=== PATIENT | female | born 1980 | race Caucasian/White ===

== ENCOUNTER 2017-04-26 17:04 | Emergency (ER) | payer MEDICAID ==
[2017-04-26 17:27] VITALS: TEMP 98.1; BMI 34.0
[2017-04-26 17:29] VITALS: RESP 18
--- NOTE | 2017-04-26 18:17 | ED PDOC ---
Arrival/HPI - General Chief Complaint: Female Genitourinary Time Seen by Provider: 04/26/17 17:48 Historian: Patient - History of Present Illness Narrative History of Present Illness (Text): 04/26/17 18:17 A 36 year old female, whose past medical history includes anemia, presents to the emergency department complaining of dizziness and syncopal episode. Patient reports she felt dizzy at work and had a syncopal episode, when she sat down. Patient reports she regained consciousness right away on her own. Patient reports this happened multiple times ever since she was 5 years old, states she has a syncopal episode once a month. Notes last time she was evaluated was more than 10 years ago. Reports she currently feels better, reports no dizziness at this time. Patient denies any fever, chills, cough, chest pain, abdominal pain, nausea, vomiting, diarrhea or any other complaints at this time. Denies any recent illness. Symptom Onset: Sudden Symptom Course: Unchanged Activities at Onset: Rest Context: Work Past Medical History - Provider Review Nursing Documentation Reviewed: Yes - Reproductive Currently : Yes - Cardiac Hx Cardiac Disorders: No - Pulmonary Hx Respiratory Disorders: No - Neurological Hx Neurological Disorder: No - HEENT Hx HEENT Disorder: No - Renal Hx Renal Disorder: No - Endocrine/Metabolic Hx Endocrine Disorders: No - Hematological/Oncological Hx Blood Disorders: No - Integumentary Hx Dermatological Disorder: No - Musculoskeletal/Rheumatological Hx Musculoskeletal Disorders: No - Gastrointestinal Hx Gastrointestinal Disorders: No - Genitourinary/Gynecological Hx Genitourinary Disorders: No - Psychiatric Hx Psychophysiologic Disorder: No Hx Substance Use: No - Surgical History Other/Comment: 2 abortions - Anesthesia Hx Anesthesia: Yes Family/Social History - Physician Review Nursing Documentation Reviewed: Yes Family/Social History: No Known Family HX Smoking Status: Never Smoked Hx Alcohol Use: No Hx Substance Use: No Allergies/Home Meds Allergies/Adverse Reactions: Allergies No Known Allergies Allergy (Verified 04/26/17 17:23) Home Medications: Home Meds Medication Instructions Recorded Confirmed No Known Home Med 04/26/17 04/26/17 Review of Systems - Physician Review All systems were reviewed & negative as marked: Yes - Review of Systems Constitutional: absent: Fevers, Other (chills) Respiratory: absent: Cough Cardiovascular: Syncope. absent: Chest Pain Gastrointestinal: absent: Abdominal Pain, Diarrhea, Nausea, Vomiting Neurological: Dizziness Physical Exam Vital Signs Reviewed: Yes Vital Signs Temp Pulse Resp BP Pulse Ox 04/26/17 20:30 75 18 106/51 L 98 04/26/17 17:23 98.1 F 97 H 18 117/71 100 Temperature: Afebrile Blood Pressure: Normal Pulse: Regular Respiratory Rate: Normal Appearance: Positive for: Well-Appearing, Non-Toxic, Comfortable Pain Distress: None Mental Status: Positive for: Alert and Oriented X 3 - Systems Exam Head: Present: Atraumatic, Normocephalic Pupils: Present: PERRL Extroacular Muscles: Present: EOMI Conjunctiva: Present: Normal Mouth: Present: Moist Mucous Membranes Neck: Present: Normal Range of Motion Respiratory/Chest: Present: Clear to Auscultation, Good Air Exchange. No: Respiratory Distress, Accessory Muscle Use Cardiovascular: Present: Regular Rate and Rhythm, Normal S1, S2. No: Murmurs Abdomen: Present: Normal Bowel Sounds. No: Tenderness, Distention, Peritoneal Signs Back: Present: Normal Inspection Upper Extremity: Present: Normal Inspection. No: Cyanosis, Edema Lower Extremity: Present: Normal Inspection. No: Edema Neurological: Present: GCS=15, CN II-XII Intact, Speech Normal Skin: Present: Warm, Dry, Normal Color. No: Rashes Psychiatric: Present: Alert, Oriented x 3, Normal Insight, Normal Concentration Medical Decision Making ED Course and Treatment: 04/26/17 18:16 Impression: A 36 year old male with dizziness and syncopal episode. Plan: -- EKG -- labs -- Urinalysis -- Reassess and disposition Progress Notes: EKG: Ordered, reviewed, and independently interpreted the EKG. Rate : 85 BPM Rhythm : NSR Interpretation : No ST-segment elevations or depressions, normal intervals. FS 113 Uhcg (+). Labs reviewed, patient is noted to be anemic, however compared to prior labs, patient's hgb is stable between 8-9. Patient notified of (+) test. Rest of the diagnostic results d/w the patient. On reevaluation, patient is resting in bed comfortably in mild distress. She has no additional complaints at this time, denies any headache, dizziness, chest pain, shortness of breath, abdominal pain or vaginal bleeding. VS : P 75 BP 106/51 R 18 O2sat 98%. Instructed to follow up with primary care physician in 1-2 days without fail. Return to the emergency room at any time for any new or worsening symptoms. Patient states she fully agrees with and understands discharge instructions. States that she agrees with the plan and disposition. Verbalized and repeated discharge instructions and plan. I have given the patient opportunity to ask any additional questions. - Lab Interpretations Lab Results: 04/26/17 18:15 04/26/17 18:15 Lab Results 04/26/17 19:53: Urine Color Yellow, Urine Appearance Clear, Urine pH 6.0, Ur Specific [place] >= 1.030, Urine Protein 30 H, Urine Glucose (UA) Negative, Urine Ketones 40 H, Urine Blood Negative, Urine Nitrate Negative, Urine Bilirubin Negative, Urine Urobilinogen 1.0 H, Ur Leukocyte Esterase Negative, Urine RBC 2 - 5, Urine WBC 10 - 15, Ur Epithelial Cells 3 - 4, Amorphous Sediment Trace, Urine Bacteria Trace 04/26/17 18:15: Sodium 135, Potassium 3.4 L, Chloride 102, Carbon Dioxide 23, Anion Gap 13, BUN 13, Creatinine 0.6 L, Est GFR ( Amer) > 60, Est GFR ( Non-Af Amer) > 60, Random Glucose 92, Calcium 9.8, Total Bilirubin 0.3, AST 24, ALT 26, Alkaline Phosphatase 62, Lactate Dehydrogenase 405, Total Creatine Kinase 136, Troponin I < 0.01, Total Protein 7.7, Albumin 4.3, Globulin 3.4, Albumin/Globulin Ratio 1.2 04/26/17 18:15: WBC 6.3, RBC 4.49, Hgb 9.8 L, Hct 31.6 L, MCV 70.4 L, MCH 21.8 L , MCHC 31.0, RDW 16.9 H, Plt Count 361, MPV 10.6, Gran % 62.8, Lymph % (Auto) 28.4, [place] % (Auto) 6.7 H, Eos % (Auto) 1.9, Baso % (Auto) 0.2, Gran # 3.93, Lymph # 1.8, [place] # 0.4, Eos # 0.1, Baso # 0.01 I have reviewed the lab results: Yes - EKG Interpretation Interpreted by ED Physician: Yes Type: 12 lead EKG - PA / ONSITE CASE MANAGER / Resident Statement /DO has reviewed & agrees with the documentation as recorded. - Scribe Statement The provider has reviewed the documentation as recorded by the Ashish Ji Provider Ashish Attestation: All medical record entries made by the Ashish were at my direction and personally dictated by me. I have reviewed the chart and agree that the record accurately reflects my personal performance of the history, physical exam, medical decision making, and the department course for this patient. I have also personally directed, reviewed, and agree with the discharge instructions and disposition. Disposition/Present on Arrival - Present on Arrival Any Indicators Present on Arrival: No History of DVT/PE: No History of Uncontrolled Diabetes: No Urinary Catheter: No History of Decub. Ulcer: No History Surgical Site Infection Following: None - Disposition Have Diagnosis and Disposition been Completed?: Yes Diagnosis: Dizziness, Syncopal episodes, Disposition: HOME/ ROUTINE Disposition Time: 20:06 Patient Plan: Discharge Condition: STABLE Discharge Instructions (ExitCare): (ED), Syncope (ED), Dizziness (ED) Print Language: KYRGYZ Additional Instructions: Thank you for letting us take care of you today. You were treated for dizziness , syncope, . The emergency medical care you received today was directed at your acute symptoms. Return to the Emergency Department if your symptoms worsen, do not improve, or if you have any other problems. Please contact your doctor in 2 days for re-evaluation and follow up / or call one of the physicians/clinics you have been referred to that are listed on the Patient Visit Information form that is included in your discharge packet. Bring any paperwork you were given at discharge with you along with any medications you are taking to your follow up visit. Our treatment cannot replace ongoing medical care by a primary care provider (PCP) outside of the emergency department. Thank you for allowing the [facility] team to be part of your care today. Referrals: Alset Wellen Ra Req, [Primary Care Provider] - Follow up with primary Forms: [email or web address] (Yoruba)
[2017-04-26 18:25] LABS: BASO # 0.01 K/mm3 (0.0-2.0); BASO % 0.2 % (0.0-3.0); EOS # 0.1 (0.0-0.7); EOS % 1.9 % (1.5-5.0); GRAN # 3.93 (1.4-6.5); GRAN % 62.8 % (50.0-68.0); HEMATOCRIT 31.6 % (36.0-48.0); LYMPH # 1.8 (1.2-3.4); LYMPH % 28.4 % (22.0-35.0); MEAN CELL VOLUME 70.4 fl (80.0-105.0); MEAN CORPUSCULAR HEMOGLOBIN 21.8 pg (25.0-35.0); MEAN PLATELET VOLUME 10.6 fl (7.0-11.0); MONO # 0.4 (0.1-0.6); MONO % 6.7 % (1.0-6.0); RED CELL DISTRIBUTION WIDTH 16.9 % (11.5-14.5); WHITE BLOOD COUNT 6.3 10^3/ul (4.5-11.0)
[2017-04-26 18:32] LABS: ALB/GLOB RATIO 1.2 (1.1-1.8); ALKALINE PHOSPHATASE 62 U/L (38-126); ALT/SGPT 26 U/L (7-56); AST/SGOT 24 U/L (14-36); BILIRUBIN,TOTAL 0.3 mg/dL (0.2-1.3); BLOOD UREA NITROGEN 13 mg/dL (7-21); CALCIUM 9.8 mg/dL (8.4-10.5); CARBON DIOXIDE 23 mmol/L (21-33); CHLORIDE 102 mmol/L (98-107); GFR AFRICAN-AMERICAN > 60; GLUCOSE,RANDOM 92 mg/dL (70-110); POTASSIUM 3.4 mmol/L (3.6-5.0); SODIUM 135 mmol/L (132-148); TOTAL PROTEIN 7.7 g/dL (5.8-8.3)
[2017-04-26 18:44] LABS: TROPONIN I < 0.01 ng/mL
[2017-04-26 20:03] LABS: URINE BILIRUBIN NEGATIVE (NEGATIVE); URINE BLOOD NEGATIVE (NEGATIVE); URINE GLUCOSE (UA) NEGATIVE (NEGATIVE); URINE KETONE 40 mg/dL (NEGATIVE); URINE LEUKOCYTE ESTERASE NEGATIVE Leu/uL (NEGATIVE); URINE PROTEIN 30 mg/dL (<30 mg/dL)
[2017-04-26 20:12] LABS: URINE APPEARANCE CLEAR (CLEAR); URINE COLOR YELLOW (YELLOW)
[2017-04-26 20:13] LABS: URINE AMORPHOUS SEDIMENT TRACE; URINE BACTERIA TRACE (NEG)
[2017-04-26 20:39] VITALS: BP 106/51; PULSE 75; O2SAT 98
--- NOTE | 2017-04-27 17:50 | CARD ---
APPROVED REPORT EKG Measurement Heart [id number] <Conclusion> Normal sinus rhythm Normal ECG
== END 2017-04-26 20:40 | disposition home or self-care (01) ==
LOC: ED 17:04
DX: O26.899 Other specified pregnancy related conditions, unspecified trimester (principal); R55 Syncope and collapse; R42 Dizziness and giddiness